=== PATIENT | male | born 1955 | race Caucasian/White ===

== ENCOUNTER 2022-07-21 00:46 | Inpatient (IN) ==
--- NOTE | 2022-07-21 01:16 | Emergency Department Note ---
Impression & Plan Syncope, Alcohol intoxication, Substernal chest pain Admit to the [facility] ED Provider Note NAME: MEHRAN MICHAUD AGE: 67 SEX: M ARRIVES VIA: Ambulance INFORMANT: Patient and his daughter ED PROVIDER(S): Lila Ferguson DO CHIEF COMPLAINT: Syncope and chest pain PLAN: Disposition: Admit to the [facility] Condition: Guarded MEDICAL DECISION MAKING: This is a 67-year-old male patient who presents to the emergency department by EMS after an episode of syncope and chest pain. The patient was drinking alcohol for the New Year's celebration when he developed chest pain and dizziness and had a syncopal event. On EMS evaluation, the patient was hypotensive in atrial fibrillation. The patient converted into a normal sinus rhythm and his blood pressure rebounded on its own by the time he arrived here in the emergency department. Alcohol level here was 110. Troponin was negative. Blood pressure remained stable. Triage Nursing notes reviewed and agree with them. Additional history obtained from the daughters who are at the bedside Vital Signs: reviewed and remarkable for bradycardia Differential diagnosis: STEMI, NSTEMI, cardiac dysrhythmia, syncope, alcohol intoxication, head injury ER treatment provided: Twelve-lead EKG radiation monitor Diagnostics interpreted by me: ECG: Normal sinus rhythm at a rate of [address] segment elevation or signs of ischemia. There is no ectopy. Cardiac Monitoring: Normal sinus rhythm at a rate of 63 Laboratory studies: See below Imaging studies: As per my interpretation Portable chest x-ray: No acute pulmonary infiltrates or consolidation HPI: 67/M arrives for evaluation of syncope and chest pain. The patient was drinking alcohol for the New Year's celebration when he developed chest pain and dizziness and had a syncopal event. EMS was called. Upon their arrival, they found the patient in a hypotensive state no longer complaining of chest pain but in atrial fibrillation. ROS: See above HPI for pertinent positives & negatives. A total of 10 systems reviewed and were otherwise negative. PAST MEDICAL HISTORY:Hypercholesterolemia, hypertension, prostate enlargement with TURP PAST SURGICAL HISTORY:See Below FAMILY HISTORY:See Below SOCIAL HISTORY:Patient does smoke HOME MEDICATIONS:See list ALLERGIES:None VITALS:See Below PHYSICAL EXAMINATION: HEENT: Head - normocephalic and atraumatic. Pupils are equal, round, and reactive to light. Extraocular eye muscles are intact, and sclera are anicteric. Nose - moist nasal mucosa without discharge. Mouth - moist buccal mucosa. Oropharynx is nonerythematous and there is no tonsillar exudate or edema noted. Neck: Supple; no JVD or cervical lymphadenopathy. Heart: Regular rate and rhythm. There is a normal S1 and S2 with no murmurs, clicks, or gallops appreciated. Lungs: Clear to auscultation bilaterally with no wheezes, rales, or rhonchi. Abdomen: Soft, completely nontender, nondistended, with good bowel sounds. There are no palpable pulsatile masses or hepatosplenomegaly. There is no guarding, rigidity, or rebound noted. Extremities: No evidence of cyanosis, clubbing, or edema. There are easily palpable peripheral pulses. Skin: Pale, warm and dry with good turgor and no rashes. ED COURSE: Times/Reassessments: 0055: Patient was evaluated in room B6. A complete history and physical was performed. A twelve-lead EKG was obtained. An order was placed for continuous cardiac monitoring. The patient was in a normal sinus rhythm at a rate of 63. Laboratory studies were drawn as above. Patient had chest x-ray performed. 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 Verified 07/21/22 01:22 Home Meds Home Medications Medication Instructions Recorded Confirmed aspirin 81 mg tablet,delayed 81 mg PO DAILY 07/21/22 07/21/22 release atorvastatin 20 mg tablet 20 mg PO HS 07/21/22 07/21/22 lisinopril 10 mg tablet 10 mg PO DAILY 07/21/22 07/21/22 Results & Data (ED) Vital Signs Vital Signs - 24 hr 07/21/22 01:01 07/21/22 01:01 Temperature 36.5 C Temperature Source Oral Pulse Rate 63 Respiratory Rate 18 Blood Pressure 104/69 Blood Pressure Mean 80 Pulse Oximetry 94 Oxygen Delivery Method Room Air Room Air Sepsis Recent Fever Within 48 Hours No Sepsis New/Unexplained Change in Mental Status No Sepsis Action Taken by Nursing No Action Required Laboratory Data Result diagrams: 07/22/22 03:13 07/21/22 06:57 Lab Results 07/21/22 07/21/22 07/21/22 Range/Units 00:59 00:59 01:27 WBC 8.10 (4.8-10.8) K/ul RBC 4.98 (4.63-6.08) M/uL Hgb 16.3 (14.0-18.0) g/dl Hct 46.3 (40.1-51.0) % MCV 93.0 (80.0-100.0) fL MCH 32.7 (25.0-34.0) pg MCHC 35.2 (32.0-36.0) g/dL RDW Std Deviation 41.0 (36.4-46.3) fL RDW Coeff of Dave 12.0 (11.5-14.5) % Plt Count 244 (130-400) K/uL MPV 10.2 (9.4-12.4) fL Immature Gran % (Auto) 0.5 % Neut % (Auto) 66.3 % Lymph % (Auto) 23.2 % [place] % (Auto) 8.9 % Eos % (Auto) 0.5 % Baso % (Auto) 0.6 % Neut # (Auto) 5.37 (1.4-6.5) K/uL Lymph # (Auto) 1.88 (1.2-3.4) K/uL [place] # (Auto) 0.72 (0.24-0.82) K/uL Eos # (Auto) 0.04 (0-0.50) K/uL Baso # (Auto) 0.05 (0-0.2) K/uL Immature Gran # (Auto) 0.04 H (0.00-0.02) K/uL Sodium 142 (136-145) mmol/L Potassium 3.6 (3.5-5.1) mmol/L Chloride 111 H (98-107) mmol/L Carbon Dioxide 21 (21-32) mmol/L Anion Gap 10 (3-11) BUN 16 (6-23) mg/dl Creatinine 1.02 (0.6-1.4) mg/dl Est Cr Clr Drug Dosing 83.1 ml/min Est GFR ( Amer) 86.5 ml/min Est GFR (Non-Af Amer) 74.6 ml/min BUN/Creatinine Ratio 15.7 (10-20) Glucose 136 H (70-99(Fasting)) mg/dl Calcium 9.1 (8.5-10.1) mg/dl Total Bilirubin 0.4 (0.2-1.0) mg/dl AST 18 (13-39) U/L ALT 27 (7-52) U/L Alkaline Phosphatase 88 (34-104) U/L Troponin I High Sens 16.7 (0-20) pg/ml Total Protein 6.6 (6.0-8.3) gm/dl Albumin 4.1 (3.4-5.0) gm/dl Globulin 2.5 (2.5-4.0) gm/dl Albumin/Globulin Ratio 1.6 (0.9-2) Lipase 11 (11-82) U/L Ethyl Alcohol mg/dL (<10.0) mg/dl SARS-CoV-2, RNA, NAAT NEGATIVE (NEGATIVE) 07/21/22 Range/Units 02:03 WBC (4.8-10.8) K/ul RBC (4.63-6.08) M/uL Hgb (14.0-18.0) g/dl Hct (40.1-51.0) % MCV (80.0-100.0) fL MCH (25.0-34.0) pg MCHC (32.0-36.0) g/dL RDW Std Deviation (36.4-46.3) fL RDW Coeff of Dave (11.5-14.5) % Plt Count (130-400) K/uL MPV (9.4-12.4) fL Immature Gran % (Auto) % Neut % (Auto) % Lymph % (Auto) % [place] % (Auto) % Eos % (Auto) % Baso % (Auto) % Neut # (Auto) (1.4-6.5) K/uL Lymph # (Auto) (1.2-3.4) K/uL [place] # (Auto) (0.24-0.82) K/uL Eos # (Auto) (0-0.50) K/uL Baso # (Auto) (0-0.2) K/uL Immature Gran # (Auto) (0.00-0.02) K/uL Sodium (136-145) mmol/L Potassium (3.5-5.1) mmol/L Chloride (98-107) mmol/L Carbon Dioxide (21-32) mmol/L Anion Gap (3-11) BUN (6-23) mg/dl Creatinine (0.6-1.4) mg/dl Est Cr Clr Drug Dosing ml/min Est GFR ( Amer) ml/min Est GFR (Non-Af Amer) ml/min BUN/Creatinine Ratio (10-20) Glucose (70-99(Fasting)) mg/dl Calcium (8.5-10.1) mg/dl Total Bilirubin (0.2-1.0) mg/dl AST (13-39) U/L ALT (7-52) U/L Alkaline Phosphatase (34-104) U/L Troponin I High Sens (0-20) pg/ml Total Protein (6.0-8.3) gm/dl Albumin (3.4-5.0) gm/dl Globulin (2.5-4.0) gm/dl Albumin/Globulin Ratio (0.9-2) Lipase (11-82) U/L Ethyl Alcohol mg/dL 110.9 H (<10.0) mg/dl SARS-CoV-2, RNA, NAAT (NEGATIVE) Administered Medications Aspirin (Aspirin 81 Mg Ectab) 81 mg PO DAILY GAYLA Stop: 08/20/22 08:59 Last Admin: 07/22/22 07:52 Dose: 81 mg Documented By: Admin: 07/21/22 08:07 Dose: 81 mg Documented By: BARI Atorvastatin Calcium (Atorvastatin 20 Mg Tab) 20 mg PO HS GAYLA Stop: 08/20/22 20:59 Last Admin: 07/21/22 21:20 Dose: 20 mg Documented By: JOSE Heparin Sodium/Dextrose (Heparin Sodium/Dextrose) 25,000 units in 500 mls @ 28 mls/hr IV .[id number] [facility]; Protocol Stop: 08/20/22 12:29 Last Admin: 07/22/22 08:55 Dose: Not Given Documented By: Titration: 07/22/22 08:54 Dose: 0 units/hr, 0 mls/hr Documented By: BARI Co-signed By: KARI Titration: 07/22/22 06:57 Dose: 1,400 units/hr, 28 mls/hr Documented By: BARI Co-signed By: JOSE Titration: 07/21/22 21:57 Dose: 1,400 units/hr, 28 mls/hr Documented By: JOSE Co-signed By: DANETTE Titration: 07/21/22 20:49 Dose: 0 units/hr, 0 mls/hr Documented By: JOSE Co-signed By: DANETTE Titration: 07/21/22 19:09 Dose: 1,550 units/hr, 31 mls/hr Documented By: JOSE Co-signed By: BARI Admin: 07/21/22 14:03 Dose: 1,550 units/hr, 31 mls/hr Documented By: BARI Co-signed By: KARI Lisinopril (Lisinopril 10 Mg Tab) 10 mg PO DAILY [facility] Stop: 08/20/22 08:59 Last Admin: 07/22/22 08:21 Dose: 10 mg Documented By: Admin: 07/21/22 08:07 Dose: 10 mg Documented By: BARI Discontinued Medications Fentanyl Citrate (Fentanyl Citrate 100 Mcg/2 Ml Vial) Confirm Administered Dose 100 mcg .ROUTE .STK-MED ONE Stop: 07/22/22 09:56 Last Increment: 07/22/22 11:29 Dose: 12.5 mcg Documented By: PRABHU Heparin Sodium (Porcine) (Heparin Sod 5,000 Unit/0.5 Ml Vial) 5,000 units SQ Q12 [facility] Stop: 08/20/22 08:59 Last Admin: 07/21/22 08:07 Dose: 5,000 units Documented By: BARI Heparin Sodium (Porcine) (Heparin (Porcine) 1000 Unit/Ml 10 Ml (Doctor Of Pharmacy Use Only)) Confirm Administered Dose 10,000 units .ROUTE .STK-MED ONE Stop: 07/22/22 09:55 Last Admin: 07/22/22 11:30 Dose: Not Given Documented By: PRABHU Heparin Sodium/Dextrose (Heparin Iv Adult Wt-Based Standard With Bolus Protocol) 1 each IV NOW STA; Protocol Stop: 07/21/22 12:09 Last Admin: 07/21/22 14:10 Dose: 1 each Documented By: BARI Heparin Sodium/Sodium Chloride (Heparin In Nss Infusion 1000 Unit/500 Ml (2 U/Ml) Bag) Confirm Administered Dose 3,000 units IV .STK-MED ONE Stop: 07/22/22 09:56 Last Admin: 07/22/22 11:29 Dose: 3,000 units Documented By: PRABHU Heparin Sodium (Porcine) 7,000 (units/ Syringe) 7 mls @ 10 mls/min IV NOW ONE Stop: 07/21/22 14:01 Last Admin: 07/21/22 14:07 Dose: 10 mls/min Documented By: BARI Co-signed By: KARI Midazolam HCl (Midazolam Hcl 1 Mg/Ml 2ml Vial) Confirm Administered Dose 2 mg .ROUTE .STK-MED ONE Stop: 07/22/22 09:55 Last Admin: 07/22/22 11:28 Dose: 2 mg Documented By: PRABHU Nicardipine HCl (Nicardipine Hcl Inj 2.5 Mg/Ml 10 Ml Amp) Confirm Administered Dose 25 mg .ROUTE .STK-MED ONE Stop: 07/22/22 09:55 Last Admin: 07/22/22 11:29 Dose: 25 mg Documented By: PRABHU Nitroglycerin/Dextrose (Nitroglycerin/D5w 100mcg/Ml 20ml Syr) Confirm Administered Dose 2,000 mcg .ROUTE .STK-MED ONE Stop: 07/22/22 09:56 Last Admin: 07/22/22 11:29 Dose: 2,000 mcg Documented By: PRABHU Pneumococcal Polyvalent Vaccine (Pneumococcal Polysaccharides 25 Mcg/0.5 Ml Vial/Syr) 25 mcg IM .ONCE ONE Stop: 07/21/22 06:36 Last Admin: 07/21/22 08:17 Dose: Not Given Documented By: BARI Discharge Plan Visit Data Chief Complaint: Syncope Stated Complaint: ETOH, Dizziness ED Provider: Lila Ferguson Discharge Problem: Syncope, Alcohol intoxication, Substernal chest pain Patient Disposition: Admitted As Inpatient Discharge Instructions Interventions: ED Discharge Assessment Last Done: 07/21/22 05:44 : Syncope Qualifiers: Syncope type: unspecified Qualified Code(s): R55 - Syncope and collapse Alcohol intoxication Qualifiers: Complication of substance-induced condition: with delirium Qualified Code(s): F10.921 - Alcohol use, unspecified with intoxication delirium
[2022-07-21 01:35] LABS: Basophils # (auto) 0.05 K/uL (0-0.2); Basophils % (auto) 0.6 %; Eosinophils # (auto) 0.04 K/uL (0-0.50); Eosinophils % (auto) 0.5 %; Hematocrit (blood only) 46.3 % (40.1-51.0); Hemoglobin 16.3 g/dl (14.0-18.0); Immature Granulocytes # (auto) 0.04 K/uL (0.00-0.02); Immature Granulocytes % (auto) 0.5 %; Lymphocytes # (auto) 1.88 K/uL (1.2-3.4); Lymphocytes % (auto) 23.2 %; Mean Corpuscular Hemoglobin 32.7 pg (25.0-34.0); Mean Corpuscular Hgb Conc 35.2 g/dL (32.0-36.0); Mean Platelet Volume 10.2 fL (9.4-12.4); Monocytes # (auto) 0.72 K/uL (0.24-0.82); Monocytes % (auto) 8.9 %; Neutrophils # (auto) 5.37 K/uL (1.4-6.5); Neutrophils % (auto) 66.3 %; Platelet Count 244 K/uL (130-400); Red Blood Count 4.98 M/uL (4.63-6.08)
[2022-07-21 02:01] LABS: Troponin I High Sensitivity 16.7 pg/ml (0-20)
[2022-07-21 02:04] LABS: Albumin Globulin Ratio 1.6 (0.9-2); Albumin Level 4.1 gm/dl (3.4-5.0); BUN Creatinine Ratio 15.7 (10-20); Bilirubin,Total 0.4 mg/dl (0.2-1.0); Calcium 9.1 mg/dl (8.5-10.1); Creatinine Clr Calc Pharmacy 83.1 ml/min; Est GFR (African American) 86.5 ml/min; Est GFR (Non-African American) 74.6 ml/min; Globulin 2.5 gm/dl (2.5-4.0); Potassium 3.6 mmol/L (3.5-5.1); Total Protein 6.6 gm/dl (6.0-8.3)
[2022-07-21] MEDS ORDERED: NITROGLYCERIN SL 0.4 MG/TAB TAB SL PRN (03:44)
[2022-07-21] MEDS ORDERED: MAGNESIUM HYDROXIDE SUSP 30 ML UDC PO PRN (03:44)
[2022-07-21] MEDS ORDERED: ACETAMINOPHEN 325 MG TAB PO PRN (03:44)
[2022-07-21] MEDS ORDERED: ALUMINUM/MAGNESIUM SUSP 30 ML UDC PO PRN (03:44)
--- NOTE | 2022-07-21 03:58 | History & Physical Report ---
Date of Service July 21, 2022 Assessment & Plan (1) Syncope: Plan Syncopal episode A. fib Chest discomfort Patient presented with syncopal episode [see HPI] preceded by chest discomfort, had hypotensive and A. fib episode as well. Patient in normal sinus rhythm at presentation to ED. labs and imaging reviewed. Admitting troponin WNL, trend troponin. Telemetry monitoring. Lipid panel candy AM. Patient reports feeling better at bedside exam. Cardiology consult. Patient with no chest pain now. Alcohol intoxication: Patient reports drinking 3-4 mixed drinks and 3 cans of [place] Light at [employer], alcohol level high, patient reports drinking once in a blue rowe, monitor for withdrawal, no ANAND S protocol for now. Other chronic medical conditions: HTN/HLD---> resume home meds as able DVT prophylaxis: Heparin subcu Denies/DNI History of Present Illness Chief Complaint: Syncope Primary Care Provider: Jose Juan Rosmery Mg 67-year-old man with PMH of HTN, HLD, status postcholecystectomy, recurrent renal stones presented to the ED 07/21/2022 after a syncopal event. Patient was at [employer] and was drinking alcohol [states having 3-4 mixed drink and 3 cans of [place] Light] when he had sudden chest discomfort and difficulty catching breath followed by passing out -- didn't fall as his grand dtr caught him per him. Patient does not remember anything after he passed out. He was told he passed out for about 2-minute. Per conversation with ED doctor, patient was in A. fib per EMS and his blood pressure were hypotensive with SBP in 70s to 80s. Patient reports drinking once in a blue rowe, last drink prior to this was a year ago per patient. Patient is a current smoker, smokes 1 packs of cigarette in 1.5 days, has been smoking for a long time. Patient denies use of recreational drugs. Patient denies any fever/chills/headache/sore throat/cough/current chest pain/belly pain/acute changes in his bowel or bladder habits lately. DNR/DNI per discussion with patient. Patient's home medications were discussed with patient. Patient was self-employed, currently retired. Allergies Allergy/AdvReac Type Severity Reaction Status Date / Time No Known Allergies Allergy Unknown . Verified 07/21/22 01:22 Home Medications Medication Instructions Recorded Confirmed Type aspirin 81 mg tablet,delayed 81 mg PO DAILY 07/21/22 07/21/22 History release atorvastatin 20 mg tablet 20 mg PO HS 07/21/22 07/21/22 History lisinopril 10 mg tablet 10 mg PO DAILY 07/21/22 07/21/22 History Past Med/Surg History Social History Smoking Status: Current every day smoker Preferred Language: Occitan Feels Safe at Home: Yes Review of Systems Review of Systems: Negative otherwise mentioned in HPI. Physical Exam Physical Exam: GENERAL: Alert and oriented x3. NAD, on RA. appears intoxicat ed. HEENT: No pallor, no icterus. Pupils equal, round and reactive to light. Oral mucosa moist. NECK: No JVD, no neck masses. HEART: S1 and S2 heard. Regular rate and rhythm. No murmur, no gallop. RESPIRATORY SYSTEM: Normal AP diameter. No accessory muscle use. No wheezing, no crackles. ABDOMEN: Soft, bowel sounds present, nontender, no distention. CENTRAL NERVOUS SYSTEM: No facial droop. Speech is clear. Obeys simple commands. Moves extremities. EXTREMITIES: No edema, no erythema seen. Results & Data Results & Data ([facility]) Vital Signs (Past 12 Hours) Vital Signs Temp Pulse Resp BP Pulse Ox O2 Del Method 07/21/22 02:22 74 21 100/67 93 07/21/22 02:40 97 07/21/22 01:01 Room Air 07/21/22 01:01 36.5 C 63 18 104/69 94 Room Air
[2022-07-21] MEDS ORDERED: PNEUMOCOCCAL POLYSACCHARIDES 25 MCG/0.5 ML VIAL/SYR IM ONE (06:35)
[2022-07-21 07:43] LABS: BUN Creatinine Ratio 16.7 (10-20); Creatinine Clr Calc Pharmacy 87.3 ml/min; Est GFR (African American) 93.1 ml/min; Est GFR (Non-African American) 80.3 ml/min; Phosphorus 4.3 mg/dl (2.5-4.9); Potassium 4.3 mmol/L (3.5-5.1)
[2022-07-21] MEDS: lisinopril 10 MG TAB PO SCH (08:07)
[2022-07-21] MEDS: ASPIRIN 81 MG ECTAB PO SCH (08:07)
--- NOTE | 2022-07-21 08:33 | XRay Report ---
XR chest 1V portable HISTORY: Chest pain, nonspecific COMPARISON: None. FINDINGS: The lungs are clear. Cardiac silhouette is normal in size. No pleural effusions. No pneumot horax. IMPRESSION: No acute process. ACT 112: Negative or not required by law. Electronically signed by: Cam Oreilly M.D. 07/21/2022 8:32 AM
[2022-07-21] MEDS ORDERED: HEPARIN SOD 5,000 UNIT/0.5 ML VIAL SQ SCH (09:00)
--- NOTE | 2022-07-21 10:05 | Electrocardiogram Report ---
Test Reason : Blood Pressure : / mmHG Vent. Rate : 062 BPM Atrial Rate : 062 BPM P-R Int : 160 ms QRS Dur : 090 ms QT Int : 388 ms P-R-T Axes : 013 094 032 degrees QTc Int : 393 ms Sinus rhythm with marked sinus arrhythmia Rightward axis Incomplete right bundle branch block Borderline ECG No previous ECGs available Confirmed by Christophe Gerardo ([id number]) on 07/21/2022 10:04:46 AM Referred By: REFERRED SELF Confirmed By:Angel Gerardo
[2022-07-21] MEDS ORDERED: Heparin IV Adult Wt-Based Standard WITH Bolus Protocol IV STA (12:08)
--- NOTE | 2022-07-21 12:09 | Cardiology Consultation ---
Date of Consultation July 21, 2022 Assessment & Plan (1) Paroxysmal atrial fibrillation: (2) Chest pain: (3) HTN (hypertension): (4) Dyslipidemia: Plan 67-year-old patient presents with abrupt onset of chest discomfort and syncope. ECG per EMS demonstrating atrial fibrillation at a heart rate of 102 bpm. No recurrent atrial fibrillation since admission. Repeat ECG demonstrating T wave abnormality without ST depression or elevation. High-sensitivity troponins are within normal limits. Presentation may represent symptomatic dysrhythmia versus possible unstable angina with normal troponin. Recommend bedside 2D transthoracic echocardiogram for evaluation of baseline left ventricular function. Repeat ECG. Baseline heart rate is bradycardic, I do not believe patient could tolerate beta-felipa at this time. Continue telemetry monitoring. Initiate IV heparin infusion with evidence of paroxysmal atrial fibrillation and T wave abnormality in the setting of chest discomfort with atypical features. Ischemic evaluation warranted. Further recommendations pending review of echocardiogram, repeat ECG, and high-sensitivity troponin. History of Present Illness Reason for Consultation: syncope, chest pain Requesting Physician: Dr. Fox Attending Physician: Dante Vail MD History of Present Illness 67-year-old male presents to the emergency department due to chest discomfort and syncope. Patient admits to drinking several alcoholic beverages (although less than normal) when he suddenly developed left-sided chest discomfort. Family reports patient clutching his left chest then stumbling forward and collapsing on the floor. Reportedly unresponsive for up to 2 minutes. EMS was summoned. ECG reviewed upon arrival demonstrating atrial fibrillation with a heart rate of 102 bpm. Chest discomfort had resolved at that time. Patient admitted for observation. Currently resting comfortably. Denies chest discomfort or heaviness since admission. Initial ECG essentially normal, however, repeat ECG performed at 8 AM demonstrating nonspecific T wave abnormality. No high-sensitivity troponins are undetectable. Telemetry reveals sinus bradycardia in the 50s with occasional PVCs since admission. No recurrent atrial fibrillation. Family reports ER evaluation in [place] approximately 2 weeks ago with similar symptoms although patient did not experience overt syncope. States "I have trouble getting my breath" then he develops chest discomfort. Denies personal history of coronary disease, congestive heart failure, rheumatic fever as a child, or diabetes. Admits to smoking up to 1 pack of cigarettes per day for more than 40 years. Allergies Allergy/AdvReac Type Severity Reaction Status Date / Time No Known Allergies Allergy Unknown . Verified 07/21/22 01:22 Home Medications Medication Instructions Recorded Confirmed Type aspirin 81 mg tablet,delayed 81 mg PO DAILY 07/21/22 07/21/22 History release atorvastatin 20 mg tablet 20 mg PO HS 07/21/22 07/21/22 History lisinopril 10 mg tablet 10 mg PO DAILY 07/21/22 07/21/22 History Patient History Social History Smoking Status: Current every day smoker Cigarettes Per Day: 12-15; Do You Dip or Chew Tobacco: No; Hx Alcohol Use: Yes Alcohol type: beer Hx Substance Use: No Preferred Language: Sri Lankan Communication Ability: Effective Chart Clerk Required: No Beliefs That Will Affect Care: None Current Living Situation: Significant Other Other Information That Helps Us Care for You: No Feels Safe at Home: Yes Safety Concerns: Feels Safe At This Time Assistive Devices: None Review of Systems Review of Systems: All systems reviewed & are unremarkable except as noted in Subjective Physical Exam Constitutional: well nourished; no acute distress Respiratory: normal respiratory effort; no respiratory distress, no labored breathing and no retractions Auscultation: lungs clear to auscultation bilaterally and + wheezes (Expiratory wheeze.); no crackles, no rales and no rhonchi Cardiovascular: Rate/Rhythm: regular rate and regular rhythm Heart Sounds: normal S1 and normal S2; no murmur Vessels: no JVD and no carotid bruit Extremities: no edema Gastrointestinal (Abdomen): Inspection/Auscultation: abdomen normal to inspection and normal bowel sounds; abdomen not distended Percussion/Palpation: abdomen soft; abdomen nontender, no guarding and abdomen not rigid Neurologic: CN's II-XI intact bilaterally and moves all extremities; no focal motor deficits Psychiatric: A+Ox3, euthymic affect Results & Data ([facility]) Vital Signs (Past 12 Hours) Vital Signs Temp Pulse Pulse Resp BP BP Pulse Ox 07/21/22 11:26 36.4 C L 54 L 19 147/84 H 98 07/21/22 10:23 62 07/21/22 07:30 36.5 C 56 L 18 139/82 96 07/21/22 06:23 36.6 C 63 18 154/87 H 98 07/21/22 05:44 63 17 132/81 96 01/01/23 05:00 65 16 125/75 95 07/21/22 04:00 56 L 15 93 07/21/22 03:01 64 18 93/58 L 95 07/21/22 02:22 74 21 100/67 93 07/21/22 02:40 97 07/21/22 01:01 07/21/22 01:01 36.5 C 63 18 104/69 94 O2 Del Method 07/21/22 11:26 Room Air 07/21/22 10:23 07/21/22 07:30 Room Air 07/21/22 06:23 Room Air 07/21/22 05:44 Room Air 07/21/22 05:00 Room Air 07/21/22 04:00 Room Air 07/21/22 03:01 Room Air 07/21/22 02:22 07/21/22 02:40 07/21/22 01:01 Room Air 07/21/22 01:01 Room Air
[2022-07-21] MEDS ORDERED: HEPARIN SOD (PORCINE) 1000 UNIT/ML IV ONE (12:23)
[2022-07-21 13:29] LABS: Partial Thromboplastin Time 27.3 Seconds (21.0-31.0)
[2022-07-21] MEDS ORDERED: HEPARIN IV BOLUS 7,000 UNITS in SYRINGE 0 ML IV ONE (14:00)
[2022-07-21] MEDS: HEPARIN SODIUM/DEXTROSE 25,000 UNITS/500 ML BAG IV SCH (14:03)
--- NOTE | 2022-07-21 14:44 | Hospitalist Progress Note ---
Date of Service July 21, 2022 Assessment & Plan (1) Syncope: Plan Syncopal episode A. fib Chest discomfort Patient presented with syncopal episode [see HPI] preceded by chest discomfort, had hypotensive and A. fib episode as well. Patient in normal sinus rhythm at presentation to ED. labs and imaging reviewed. 07/21 Chest pain-free Troponin levels normal EKG showing nonspecific T wave normality inferior and lateral leads Cardiology service consulted Beta-felipa not initiated in light of bradycardia Heparin drip started Echocardiogram pending Will need ischemic work-up Alcohol intoxication: Patient reports drinking 3-4 mixed drinks and 3 cans of [place] Light at neuro constitution party, alcohol level high, patient reports drinking once in a blue rowe, monitor for withdrawal, no ANAND S protocol for now. --No signs of alcohol withdrawal Other chronic medical conditions: HTN/HLD---> continue lisinopril, aspirin, atorvastatin DVT prophylaxis: Heparin drip Denies/DNI Admission and Anticipated Discharge Date Admission Date: July 21, 2022 Subjective Follow-up for chest pain, syncope, etc. Seen resting in bed, sleeping but easily awakened Comfortable, not in distress States he feels fine overall Chest pain-free Denies shortness of breath, palpitations, dizziness No other symptoms Review of Systems Review of Systems: all noted and negative except for above Physical Exam Physical Exam: General- oriented x 3, not in distress, speaks in sentences with no effort or accessory muscle use Eyes- anicteric Neck- no JVD Lungs- clear breath sounds bilaterally, no rales/wheezes Heart- normal rate, regular rhythm; no murmurs Abdomen- normal bowel sounds, nondistended, soft, nontender Extremities- no pretibial edema, no calf tenderness Neuro- alert, oriented x 3; no gross focal neurologic deficits Skin- warm & dry Results & Data Results & Data ([facility]) Vital Signs (Past 12 Hours) Vital Signs Temp Pulse Pulse Resp BP BP Pulse Ox 07/21/22 11:26 36.4 C L 54 L 19 147/84 H 98 07/21/22 10:23 62 07/21/22 07:30 36.5 C 56 L 18 139/82 96 07/21/22 06:23 36.6 C 63 18 154/87 H 98 07/21/22 05:44 63 17 132/81 96 07/21/22 05:00 65 16 125/75 95 07/21/22 04:00 56 L 15 93 07/21/22 03:01 64 18 93/58 L 95 O2 Del Method 07/21/22 11:26 Room Air 07/21/22 10:23 07/21/22 07:30 Room Air 07/21/22 06:23 Room Air 07/21/22 05:44 Room Air 07/21/22 05:00 Room Air 07/21/22 04:00 Room Air 07/21/22 03:01 Room Air all noted and reviewed including below
[2022-07-21 20:35] LABS: Partial Thromboplastin Ratio 3.3
[2022-07-21 20:50] LABS: Partial Thromboplastin Time 89.7 Seconds (21.0-31.0)
[2022-07-21] MEDS ORDERED: ATORVASTATIN 20 MG TAB PO SCH (21:00)
[2022-07-22 03:50] LABS: Hematocrit (blood only) 43.5 % (40.1-51.0); Hemoglobin 15.4 g/dl (14.0-18.0); Mean Corpuscular Hemoglobin 33.1 pg (25.0-34.0); Mean Corpuscular Hgb Conc 35.4 g/dL (32.0-36.0); Mean Corpuscular Volume 93.5 fL (80.0-100.0); Mean Platelet Volume 10.5 fL (9.4-12.4); Platelet Count 215 K/uL (130-400); RDW Standard Deviation 41.4 fL (36.4-46.3); Red Blood Count 4.65 M/uL (4.63-6.08); White Blood Count 7.18 K/ul (4.8-10.8)
[2022-07-22 04:17] LABS: Chol HDL Ratio 3.9 (0-5); Magnesium 2.1 mg/dl (1.7-2.4); Partial Thromboplastin Ratio 2.1; Phosphorus 2.7 mg/dl (2.5-4.9)
[2022-07-22 04:22] LABS: Partial Thromboplastin Time 58.3 Seconds (21.0-31.0)
[2022-07-22] MEDS: ASPIRIN 81 MG ECTAB PO SCH (07:52)
[2022-07-22] MEDS: lisinopril 10 MG TAB PO SCH (08:21)
[2022-07-22] MEDS ORDERED: Nursing to Pharmacy Communication SCH (08:30)
--- NOTE | 2022-07-22 08:34 | Pre Anesthesia Assessment ---
Date of Service July 22, 2022 Pre Sedation Assessment Vital Signs Temp Pulse Pulse Resp BP Pulse Ox O2 Del Method 07/22/22 15:13 55 L 07/22/22 15:00 55 L 20 154/78 H 95 Room Air 07/22/22 13:49 55 L 19 128/78 95 Room Air 07/22/22 13:09 52 L 16 146/78 H 97 Room Air 07/22/22 12:45 52 L 21 148/84 H 95 Room Air 07/22/22 12:35 50 L 20 140/82 96 Room Air 07/22/22 12:19 55 L 18 132/84 96 Room Air 07/22/22 12:04 49 L 20 128/80 96 Room Air 07/22/22 11:51 54 L 18 134/69 97 Room Air 07/22/22 11:35 59 L 18 136/86 98 Room Air 07/22/22 08:00 49 L 07/22/22 08:00 Room Air 07/22/22 07:25 36.5 C 55 L 19 169/91 H 95 Room Air 07/22/22 04:28 36.7 C 48 L 18 146/83 H 96 Room Air 07/21/22 23:17 36.6 C 53 L 18 136/82 97 Room Air 07/21/22 23:00 56 L 07/21/22 20:13 36.7 C 53 L 18 145/79 H 96 Room Air 07/21/22 16:37 36.8 C 57 L 18 156/86 H 96 Room Air 07/21/22 16:20 56 L Cardiovascular + regular rate and + regular rhythm + S1 normal and + S2 normal; no murmur no JVD and no carotid bruit no edema Respiratory + respiratory effort normal; no respiratory distress and no labored breathing + rhonchi (scattered B/L); no crackles and no rales Pre-Sedation Airway Assessment Smoking Status: Current every day smoker Mallampati Class: III ASA: ASA3 NPO Status Date of Last Intake of Fluids: 07/22/22 Date of Last Intake of Solid Food: 07/21/22 Procedure Planning Contraindications for Sedation: none Current Medications Reviewed: Yes Notes The planned sedation has been discussed with the patient. Informed Consent was obtained. I have identified the patient, determined the appropriateness of sedation and have assessed the patient immediately prior to the procedure. All medicine(s) and interventions are by my order.
[2022-07-22] MEDS: HEPARIN SODIUM/DEXTROSE 25,000 UNITS/500 ML BAG IV SCH (08:55)
[2022-07-22] MEDS ORDERED: MIDAZOLAM HCL 1 MG/ML 2ML VIAL ONE (09:54)
[2022-07-22] MEDS ORDERED: HEPARIN (PORCINE) 1000 UNIT/ML 10 ML (CATH LAB USE ONLY) ONE (09:54)
[2022-07-22] MEDS ORDERED: niCARdipine HCL INJ 2.5 MG/ML 10 ML AMP ONE (09:54)
[2022-07-22] MEDS ORDERED: NITROGLYCERIN/D5W 100MCG/ML 20ML SYR ONE (09:55)
[2022-07-22] MEDS ORDERED: fentaNYL citrate 100 MCG/2 ML VIAL ONE (09:55)
--- NOTE | 2022-07-22 10:21 | Cardiology Progress Note ---
Date of Service July 22, 2022 Assessment & Plan (1) Paroxysmal atrial fibrillation: (2) Chest pain: (3) HTN (hypertension): (4) Dyslipidemia: Plan 67-year-old patient presents with abrupt onset of chest discomfort and syncope. ECG per EMS demonstrating atrial fibrillation at a heart rate of 102 bpm. Brief recurrent episode of atrial fibrillation recorded overnight. Further ischemic evaluation recommended. Discussed stress testing versus coronary angiography. Risk, benefits, alternatives to procedure reviewed. Patient agreeable to proceed with coronary angiography with left heart catheterization. IV heparin we placed on hold this morning. Further recommendations pending result of cardiac catheterization. Likely transition patient to Eliquis at discharge. Admission and Anticipated Discharge Date Admission Date: July 21, 2022 Subjective Patient seen examined the bedside. No chest pain or shortness of breath overnight. Notes occasional cough. Denies orthopnea, PND, or lower extremity edema. Telemetry reveals sinus bradycardia in the 50s. Short salvos of paroxysmal atrial fibrillation recorded overnight. Review of Systems Review of Systems: All systems reviewed & are unremarkable except as noted in Subjective Physical Exam Constitutional: well nourished; no acute distress ENMT: Mallampati Class: III Respiratory: normal respiratory effort; no respiratory distress, no labored breathing and no retractions Auscultation: lungs clear to auscultation bilaterally, + rhonchi (scattered B/L) and + wheezes (Expiratory wheeze.); no crackles and no rales Cardiovascular: Rate/Rhythm: regular rate and regular rhythm Heart Sounds: normal S1 and normal S2; no murmur Vessels: no JVD and no carotid bruit Extremities: no edema Gastrointestinal (Abdomen): Inspection/Auscultation: abdomen normal to inspection and normal bowel sounds; abdomen not distended Percussi on/Palpation: abdomen soft; abdomen nontender, no guarding and abdomen not rigid Neurologic: CN's II-XI intact bilaterally and moves all extremities; no focal motor deficits Psychiatric: A+Ox3, euthymic affect Results & Data ([facility]) Vital Signs (Past 12 Hours) Vital Signs Temp Pulse Pulse Resp BP Pulse Ox O2 Del Method 07/22/22 08:00 49 L 07/22/22 08:00 Room Air 07/22/22 07:25 36.5 C 55 L 19 169/91 H 95 Room Air 07/22/22 04:28 36.7 C 48 L 18 146/83 H 96 Room Air 07/21/22 23:17 36.6 C 53 L 18 136/82 97 Room Air 07/21/22 23:00 56 L
--- NOTE | 2022-07-22 11:29 | Post Anesthesia Assessment ---
Date of Service July 22, 2022 Post Sedation Assessment Vital Signs Temp Pulse Pulse Resp BP Pulse Ox O2 Del Method 07/22/22 15:13 55 L 07/22/22 15:00 55 L 20 154/78 H 95 Room Air 07/22/22 13:49 55 L 19 128/78 95 Room Air 07/22/22 13:09 52 L 16 146/78 H 97 Room Air 07/22/22 12:45 52 L 21 148/84 H 95 Room Air 07/22/22 12:35 50 L 20 140/82 96 Room Air 07/22/22 12:19 55 L 18 132/84 96 Room Air 07/22/22 12:04 49 L 20 128/80 96 Room Air 07/22/22 11:51 54 L 18 134/69 97 Room Air 07/22/22 11:35 59 L 18 136/86 98 Room Air 07/22/22 08:00 49 L 07/22/22 08:00 Room Air 07/22/22 07:25 36.5 C 55 L 19 169/91 H 95 Room Air 07/22/22 04:28 36.7 C 48 L 18 146/83 H 96 Room Air 07/21/22 23:17 36.6 C 53 L 18 136/82 97 Room Air 07/21/22 23:00 56 L 07/21/22 20:13 36.7 C 53 L 18 145/79 H 96 Room Air 07/21/22 16:37 36.8 C 57 L 18 156/86 H 96 Room Air 07/21/22 16:20 56 L Recovery Score Activity: Moves 4 extremities Respiration: Deep Breath/Cough Circulation: +/-20% PreAnes Value Consciousness: Arouseable (by name) Oxygen Saturation: > 92% On Room Air Discharge Sedation Level of Care: Phase I Post Sedation Plan On clinical assessment, the patient appears to have tolerated the sedation without complications. Patient is recovering as anticipated. Patient will continue to be monitored by nursing and may be discharged when sedation discharge criteria are met per below protocol. Upon Completions of procedure up to 15 minutes continue every 5 minute vital signs and the P.A.R. score; then discharge to a Phase I or Fast Track to Phase II per the following guidelines: * Discharge Patient to appropriate Phase II area if PAR is 8 or greater or return to pre- procedure baseline. The post - procedure orders will be as directed. * If PAR score is less than 8 or not return to pre-procedure baseline then patient will follow Phase I monitoring till PAR is reached for Phase II. The Phase I may be done in procedure room or may call to secure a Phase I area. * If naloxone or flumazenil are used for reversal, hold in Phase I for continued monitoring from when last reversal dose was given for a minimum of 60 minutes or longer pending the nurse and/or physician discretion of patient condition before discharge to Phase II. Please call the Sedation Physician to re-evaluate and complete post-note for discharge to Phase II area. Do NOT discharge from procedure sedation or Phase 1 until post- sedation evaluation note is complete by procedure /sedation MD Sedation Discharge Instructions to be given to the patient at discharge to home.
--- NOTE | 2022-07-22 11:34 | Cardiac Catheterization ---
Cardiac Cath Procedure Full Procedure Date July 22, 2022 Pre-Procedure Diagnosis Pre-Procedure Diagnosis: Angina and Cardiothoracic Symptom (syncope) AUC Score AUC Score: 7 Post-Procedure Diagnosis Post-Procedure Diagnosis: Moderate CAD and Elevated Intracardiac Pressures Procedure(s) Performed Procedure(s) Performed: Coronary Angiography and Left Heart Cath Construction Superintendent Parish Stratton DO Prosthetic Aide(s) Showers RN Estimated Blood Loss Estimated Blood Loss: 8cc Medication(s) Medication(s): Fentanyl, Lidocaine 1% and Versed Summary of Findings Moderate nonobstructive coronary artery disease. Hemodynamics Rest Ao:: 127/65/92 Final Ao: 131/66/91 LV: 137/3/16 Recommendations Recommendations: Medical Therapy and/or Counseling Specimens Specimens: None Radiation Exposure (mGy) 968 Contrast (mls) 45 Fluids (cc crystalloids) Fluids (cc crystalloids): 130 Nss Anesthesia Moderate sedation. Start 1036. End 1127. Sedation monitor Jaquan HUSAIN Procedural Complication(s) None Disposition PCU I attest to the content of the Intraoperative Record and any orders documented therein. Any exceptions are noted below. ACC Data: Credit Manager Cardiac Status Clinical evaluation leading to the procedure 67-year-old patient present to the emergency department with abrupt onset of chest discomfort and shortness of breath followed by syncope. CAD Presenation: Unstable angina Anginal Classification: CCS IV Heart Failure: No Coronary Anatomy Dominant: Right Left Main (% Stenosis): Normal LAD (% Stenosis): Mid (30% distal to origin of D1, 30% late mid) and Distal (Luminal irregularities, 20%) D1 (% Stenosis): Normal D2 (% Stenosis): Normal (1 mm vessel) Circumflex (% Stenosis): Proximal (30%) OM1 (% Stenosis): Mid (Luminal irregularities, 10%. Small, 1.5 mm vessel.) OM2 (% Stenosis): Normal RCA (% Stenosis): Mid (Luminal irregularities, 20%) R PDA (% Stenosis): Proximal (20%) and Mid (10%) R PL1 (% Stenosis): Normal R PL2 (% Stenosis): Normal Diagnostic Physicians Name: Parish Stratton DO Closure Device Percutaneous Entry Location: Femoral (Unsuccessful radial access despite ultrasound guidance.) Closure Device: Mynx Recommendations: Medical Therapy and/or Counseling Intraprocedure Events Significant Disection: No Perforation: No
--- NOTE | 2022-07-22 14:54 | Hospitalist Progress Note ---
Date of Service July 22, 2022 Assessment & Plan (1) Syncope: Plan Syncopal episode Chest pain Paroxysmal atrial fibrillation Patient presented with syncopal episode [see HPI] preceded by chest discomfort, had hypotensive and A. fib episode as well. Patient in normal sinus rhythm at presentation to ED Troponin level normal EKG showing nonspecific T wave normality inferior and lateral leads Cardiology service consulted Beta-felipa not initiated in light of bradycardia Heparin drip started Echocardiogram: EF 65 to 70%, moderate concentric LVH, diastolic dysfunction grade 2 Status post cardiac catheterization July 22, 2022: Moderate CAD, medical management recommended Patient chest pain-free during admission No recurrence of presyncope/syncope Cleared for discharge Continue aspirin, lisinopril, atorvastatin Follow-up with die tester in 2 to 3 weeks follow-up with primary care physician in 1 Alcohol intoxication: Patient reports drinking 3-4 mixed drinks and 3 cans of [place] Light at neuro republican, alcohol level high, patient reports drinking once in a blue rowe, monitor for withdrawal, no ANAND S protocol for now. --No signs of alcohol withdrawal Other chronic medical conditions: HTN/HLD---> continue lisinopril, aspirin, atorvastatin Admission and Anticipated Discharge Date Admission Date: July 21, 2022 Subjective Follow-up for syncopal episode with chest pain, etc. Seen resting in bed, comfortable, not distressed Chest pain-free since admission, no shortness of breath, palpitations, dizziness, syncope or presyncope Denies cough, sputum production, fevers or chills, abdominal pain, nausea vomiting No other symptoms States he is ready And would like to be discharged today Review of Systems Review of Systems: all noted and negative except for above Physical Exam Physical Exam: General- oriented x 3, not in distress, speaks in sentences with no effort or accessory muscle use Eyes- anicteric Neck- no JVD Lungs- clear breath sounds bilaterally, no crackles or wheezing Heart- normal rate, regular rhythm; no murmurs Abdomen- normal bowel sounds, nondistended, soft, nontender Extremities- no pretibial edema, no calf tenderness Neuro- alert, oriented x 3; no gross focal neurologic deficits Skin- warm & dry Results & Data Results & Data ([facility]) Vital Signs (Past 12 Hours) Vital Signs Temp Pulse Pulse Resp BP Pulse Ox O2 Del Method 07/22/22 13:49 55 L 19 128/78 95 Room Air 07/22/22 13:09 52 L 16 146/78 H 97 Room Air 07/22/22 12:45 52 L 21 148/84 H 95 Room Air 07/22/22 12:35 50 L 20 140/82 96 Room Air 07/22/22 12:19 55 L 18 132/84 96 Room Air 07/22/22 12:04 49 L 20 128/80 96 Room Air 07/22/22 11:51 54 L 18 134/69 97 Room Air 07/22/22 11:35 59 L 18 136/86 98 Room Air 07/22/22 08:00 49 L 07/22/22 08:00 Room Air 07/22/22 07:25 36.5 C 55 L 19 169/91 H 95 Room Air 07/22/22 04:28 36.7 C 48 L 18 146/83 H 96 Room Air all noted and reviewed including below
--- NOTE | 2022-07-22 15:55 | Communication Note ---
Date of Service: July 22, 2022 Cardiac catheterization revealing nonobstructive coronary artery disease. Recommend discontinue IV heparin. Initiate anticoagulation with Eliquis in a.m. 07/23/2022. Schedule 14-day ZIO monitor for further evaluation of syncope and atrial fibrillation burden. Cardiology follow-up in 3 weeks when ZIO monitor complete. Post cardiac catheterization activity restrictions listed below. ACTIVITY RECOMMENDATIONS: It is common to feel weak and fatigue for a few days. * Do not drive or operate any motorized equipment for the next three days. * Limit stair usage (2 or 3 trips a day only) for the next three days. * Do not lift anything heavier than 10 pounds for the next three days. * Do not engage in vigorous exercise or any sports for the next five days. * You may shower the day after your procedure, but do not immerse the area for three days. Cleanse the site gently with soap and water. SPECIAL CARE INSTRUCTIONS: * You may replace the pressure dressing or band-aid the morning after the procedure. * After your procedure, it is normal to have a small bruise or small lump at the site. Examine your site daily for any change in the bruise or lump, redness, swelling, drainage or numbness. Notify your doctor if any change. BLEEDING: * If there is a small amount of bleeding at the site, lie down and apply firm pressure with a clean cloth for ten minutes. When the bleeding stops, lie quietly keeping the procedure limb straight for six hours. Notify your doctor as soon as possible. * If the bleeding does not stop after ten minutes or if there is a large amount of bleeding or spurting, call 911 immediately. Continue to lie down and hold firm pressure until help arrives. SKIN IRRITATION: * You may experience some redness and/or swelling in the area where radiation was administered. If any skin irritation occurs, please contact your family physician. FOLLOW UP VISIT: Keep any scheduled doctor appointments.
--- NOTE | 2022-07-22 16:53 | Discharge Summary ---
Discharge Summary Date of Service July 22, 2022 Notes For Next Care Provider Cardiology service recommendations: Schedule 14-day ZIO monitor for further evaluation of syncope and atrial fibrillation burden. Cardiology follow-up in 3 weeks when ZIO monitor complete. Medication Changes From Visit Eliquis 5 mg p.o. twice daily Admission HPI Per Admitting Provider 67-year-old man with PMH of HTN, HLD, status postcholecystectomy, recurrent renal stones presented to the ED 07/21/2022 after a syncopal event. Patient was at [employer] and was drinking alcohol [states having 3-4 mixed drink and 3 cans of [place] Light] when he had sudden chest discomfort and difficulty catching breath followed by passing out -- didn't fall as his grand dtr caught him per him. Patient does not remember anything after he passed out. He was told he passed out for about 2-minute. Per conversation with ED doctor, patient was in A. fib per EMS and his blood pressure were hypotensive with SBP in 70s to 80s. Patient reports drinking once in a blue rowe, last drink prior to this was a year ago per patient. Patient is a current smoker, smokes 1 packs of cigarette in 1.5 days, has been smoking for a long time. Patient denies use of recreational drugs. Patient denies any fever/chills/headache/sore throat/cough/current chest pain/belly pain/acute changes in his bowel or bladder habits lately. DNR/DNI per discussion with patient. Patient's home medications were discussed with patient. Patient was self- employed, currently retired. Admission Exam Per Admitting Provider GENERAL: Alert and oriented x3. NAD, on RA. appears intoxicated. HEENT: No pallor, no icterus. Pupils equal, round and reactive to light. Oral mucosa moist. NECK: No JVD, no neck masses. HEART: S1 and S2 heard. Regular rate and rhythm. No murmur, no gallop. RESPIRATORY SYSTEM: Normal AP diameter. No accessory muscle use. No wheezing, no crackles. ABDOMEN: Soft, bowel sounds present, nontender, no distention. CENTRAL NERVOUS SYSTEM: No facial droop. Speech is clear. Obeys simple commands. Moves extremities. EXTREMITIES: No edema, no erythema seen. Principal Dx & Hospital Course #1 = Principal Diagnosis (1) Syncope: Plan Syncopal episode Chest pain Paroxysmal atrial fibrillation Patient presented with syncopal episode [see HPI] preceded by chest discomfort, had hypotensive and A. fib episode as well. Patient in normal sinus rhythm at presentation to ED Troponin level normal EKG showing nonspecific T wave normality inferior and lateral leads Cardiology service consulted Beta-felipa not initiated in light of bradycardia Heparin drip started Echocardiogram: EF 65 to 70%, moderate concentric LVH, diastolic dysfunction grade 2 status post cardiac catheterization July 22, 2022: NON Obstructive CAD, medical management recommended Patient chest pain-free during admission No recurrence of presyncope/syncope Cleared for discharge Per Dr. Stratton: Start Eliquis 5 mg p.o. twice daily Schedule 14-day ZIO monitor for further evaluation of syncope and atrial fibrillation burden. Cardiology follow-up in 3 weeks when ZIO monitor complete. Continue aspirin, lisinopril, atorvastatin Follow-up with solar electric installer in 2 to 3 weeks follow-up with primary care physician in 1 Alcohol intoxication: Patient reports drinking 3-4 mixed drinks and 3 cans of [place] Light at neuro republican, alcohol level high, patient reports drinking once in a blue rowe, monitor for withdrawal, no ANAND S protocol for now. --No signs of alcohol withdrawal Other chronic medical conditions: HTN/HLD---> continue lisinopril, aspirin, atorvastatin Discharge Exam General- oriented x 3, not in distress, speaks in sentences with no effort or accessory muscle use Eyes- anicteric Neck- no JVD Lungs- clear breath sounds bilaterally, no crackles or wheezing Heart- normal rate, regular rhythm; no murmurs Abdomen- normal bowel sounds, nondistended, soft, nontender Extremities- no pretibial edema, no calf tenderness Neuro- alert, oriented x 3; no gross focal neurologic deficits Skin- warm & dry Updated Medication List Medication Instructions Recorded Confirmed Type aspirin 81 mg tablet,delayed 81 mg PO DAILY 07/21/22 07/21/22 History release atorvastatin 20 mg tablet 20 mg PO HS 07/21/22 07/21/22 History lisinopril 10 mg tablet 10 mg PO DAILY 07/21/22 07/21/22 History apixaban 5 mg tablet (Eliquis) 5 mg PO BID 30 days #60 tabs 07/22/22 Rx Hospital Stay Data Consultations 07/21/22 03:29 ED Decision to Admit Stat 07/21/22 03:44 Consult Cardiology Routine Procedures Performed Operation Date: 07/22/22 10:00 Actual Procedures s Cineradiography w/Routine Exam - Parish Stratton DO p Cath, Left with Cors and Vent - Parish Stratton, s Ultrasound Vascular Access - Parish Stratton, s Placement Art Occlusive Device - Parish Stratton DO Diagnostic Imagining Performed 07/22/22 07:07 CL Cath Imgs for PACS use only Routine Pending Results Patient Have Any Pending Studies at Discharge: No Discharge Instructions Given to Patient (Per Discharging Provider) PLEASE REFER TO YOUR NEW MEDICATION LIST AND FOLLOW INSTRUCTIONS CAREFULLY. YOUR NEW MEDICATIONS INCLUDE: Eliquis-blood thinner to prevent stroke -If you experience any head trauma, please proceed to the ER immediately for evaluation even if you have not symptoms Continue taking the rest of your usual medications. Always take your medications daily. Drink plenty of fluids. No alcohol or smoking. PLEASE CALL YOUR PRIMARY CARE PHYSICIAN OR RETURN TO THE ER IF WITH WORSENING OF SYMPTOMS, INCLUDING Chest pain, shortness of breath, palpitations, dizziness, etc. FOLLOW UP WITH PRIMARY CARE PHYSICIAN in 1 week. Follow-up with [facility] solar electric installer Dr. Parish Stratton in 2 to 3 weeks. Please call his office for an appointment. Contact information outlined above. Total Time Total Time Spent Total Time Spent (In Minutes): >30 minutes
--- NOTE | 2022-07-22 18:46 | Electrocardiogram Report ---
Test Reason : Blood Pressure : / mmHG Vent. Rate : 052 BPM Atrial Rate : 052 BPM P-R Int : 168 ms QRS Dur : 088 ms QT Int : 430 ms P-R-T Axes : 056 -32 -30 degrees QTc Int : 399 ms Sinus bradycardia Left axis deviation Nonspecific T wave abnormality Abnormal ECG When compared with ECG of 21-JUL-2022 00:54, QRS axis Shifted left Nonspecific T wave abnormality, worse in Inferior leads Nonspecific T wave abnormality now evident in Lateral leads Confirmed by Christophe Gerardo ([id number]) on 07/22/2022 6:45:50 PM Referred By: REFERRED SELF Confirmed By:Angel Gerardo
--- NOTE | 2022-07-22 18:49 | Electrocardiogram Report ---
Test Reason : Blood Pressure : / mmHG Vent. Rate : 057 BPM Atrial Rate : 057 BPM P-R Int : 158 ms QRS Dur : 086 ms QT Int : 416 ms P-R-T Axes : 019 -38 000 degrees QTc Int : 404 ms Sinus bradycardia Left axis deviation T wave abnormality, consider lateral ischemia Abnormal ECG When compared with ECG of 21-JUL-2022 08:37, (unconfirmed) Inverted T waves have replaced nonspecific T wave abnormality in Lateral leads Confirmed by Christophe Gerardo ([id number]) on 07/22/2022 6:48:55 PM Referred By: REFERRED SELF Confirmed By:Angel Gerardo
[2022-07-23] MEDS ORDERED: APIXABAN 5 MG TABLET PO SCH (09:00)
== END 2022-07-22 17:47 | disposition home or self-care (01) | DRG 303 ==
LOC: ED 00:46 → SUATTDRO 03:45 → OBSVTOIN 03:45 → 4W 03:45 → INTOOBSV 03:45 → 4W 05:44